=== PATIENT | female | born 1995 | race Caucasian/White ===

== ENCOUNTER 2017-07-07 16:55 | Emergency (ER) | payer BC, OTHER ==
[2017-07-07 17:31] VITALS: BP 141/81
--- NOTE | 2017-07-07 18:00 | EDM.PDOC ---
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 Pt reports long standing history of constipation and states she took ducolax orally and Miralax today and developed abdominal pain. Pt also reporting urinary frequency and urgency which began today. Pt denies any nausea/ vomiting, no fever/chills, no vaginal bleeding or vaginal discharge. Onset: Today Duration: Hour(s): (3) Location: Reports: Abdomen Quality: Reports: Dull Severity: Mild Improves with: Reports: None Worsens with: Reports: None Associated Symptoms: Reports: No Other Symptoms Abdomen Pain Score (Numeric/FACES): 6 - Related Data Allergies Allergy/AdvReac Type Severity Reaction Status Date / Time silver sulfadiazine Allergy Cannot Verified 07/07/17 17:28 [From Brad] Remember Home Meds: Home Meds Cephalexin [Keflex] 500 mg PO Q6HR #28 capsule 07/07/17 [Rx] Pnv No.122/Iron/Folic Acid [ Multi Tablet] 1 tab PO DAILY 07/07/17 [ History] Simethicone 125 mg PO TID PRN #30 tab.chew 07/07/17 [Rx] Past Medical History - Past Surgical History HEENT Surgical History: Reports: Tonsillectomy Social & Family History - Tobacco Use Smoking Status *Q: Current Every Day Smoker Years of Tobacco use: 8 Packs/Tins Daily: 0.7 Used Tobacco, but Quit: No Second Hand Smoke Exposure: Yes - Caffeine Use Caffeine Use: Reports: Coffee, Soda - Recreational Drug Use Recreational Drug Use: No Recreational Drug Type: Reports: Marijuana/Hashish ED ROS GENERAL - Review of Systems Review Of Systems: See Below Constitutional: Reports: No Symptoms HEENT: Reports: No Symptoms Respiratory: Reports: No Symptoms Cardiovascular: Reports: No Symptoms Endocrine: Reports: No Symptoms GI/Abdominal: Reports: Abdominal Pain, Constipation : Reports: Frequency, Urgency Musculoskeletal: Reports: No Symptoms Skin: Reports: No Symptoms Neurological: Reports: No Symptoms Psychiatric: Reports: No Symptoms Hematologic/Lymphatic: Reports: No Symptoms Immunologic: Reports: No Symptoms ED EXAM - Physical Exam Exam: See Below Exam Limited By: No Limitations General Appearance: Alert, WD/WN, No Apparent Distress Head: Atraumatic, Normocephalic Neck: Normal Inspection, Supple, Non-Tender, Full Range of Motion Respiratory/Chest: No Respiratory Distress, Lungs Clear, Normal Breath Sounds, No Accessory Muscle Use, Chest Non-Tender Cardiovascular: Normal Peripheral Pulses, Regular Rate, Rhythm, No Edema, No Gallop, No JVD, No Murmur, No Rub GI/Abdominal Exam: Normal Bowel Sounds, Soft, Non-Tender, No Organomegaly, No Distention, No Abnormal Bruit, No Mass, Pelvis Stable Heart Tones: Present Heart Tones per Min: 160 Movement: Active Back Exam: Normal Inspection, Full Range of Motion, NT Extremities: Normal Inspection, Normal Range of Motion, Non-Tender, Normal Capillary Refill, No Pedal Edema Neurological: Alert, Oriented, CN II-XII Intact, Normal Cognition, Normal Gait, Normal Reflexes, No Motor/Sensory Deficits Psychiatric: Normal Affect, Normal Mood Skin Exam: Warm, Dry, Intact, Normal Color, No Rash Lymphatic: No Adenopathy Course - Vital Signs Last Recorded V/S: Last Vital Signs Temp 36.3 C 07/07/17 17:29 Pulse 75 07/07/17 17:29 Resp 20 07/07/17 17:29 BP 141/81 H 07/07/17 17:29 Pulse Ox 99 07/07/17 17:29 - Orders/Labs/Meds Orders: Active Orders 24 hr Category Date Time Status Cephalexin [Keflex] Med 07/07/17 18:15 Active 250 mg PO Q6HR Medication Orders Cephalexin (Keflex) 250 mg PO Q6HR ZULMA Stop: 07/09/17 23:01 Labs: Laboratory Tests 07/07/17 Range/Units 17:35 Specimen Type Urinvoid Urine Color Yellow (YELLOW) Urine Appearance Slightly cloudy H (CLEAR) Urine pH 7.0 (5.0-9.0) Ur Specific [place] 1.025 (1.005-1.030) Urine Protein Negative (NEGATIVE) mg/dL Urine Glucose (UA) Negative (NEGATIVE) mg/dL Urine Ketones Negative (NEGATIVE) mg/dL Urine Occult Blood Moderate H (NEGATIVE) Urine Nitrite Negative (NEGATIVE) Urine Bilirubin Negative (NEGATIVE) Urine Urobilinogen 0.2 (0.2-1.0) E.U./dL Ur Leukocyte Esterase Negative (NEGATIVE) Urine RBC >100 H /HPF Urine WBC 0-5 /HPF Ur Epithelial Cells Moderate H /LPF Urine Bacteria Few (NONE TO FEW) /HPF Meds: Medications Generic Name Dose Route Start Last Admin Trade Name Freq PRN Reason Stop Dose Admin Cephalexin 250 mg 07/07/17 18:15 Keflex PO 07/09/17 23:01 Q6HR ZULMA Discontinued Medications Generic Name Dose Route Start Last Admin Trade Name Freq PRN Reason Stop Dose Admin Simethicone 160 mg 07/07/17 18:11 Simethicone PO 07/07/17 18:12 ONETIME ONE Departure - Departure Time of Disposition: 18:13 Disposition: Home, Self-Care 01 Condition: Good Clinical Impression: Constipation Qualifiers: Constipation type: slow transit constipation Qualified Code(s): K59.01 - Slow transit constipation Urinary tract infection Qualifiers: Urinary tract infection type: acute cystitis Hematuria presence: without hematuria Qualified Code(s): N30.00 - Acute cystitis without hematuria - Discharge Information Prescriptions: Cephalexin [Keflex] 500 mg PO Q6HR #28 capsule Simethicone 125 mg PO TID PRN #30 tab.chew PRN Reason: Pain Instructions: Urinary Tract Infection, Adult, [id number], Constipation, Adult , [id number] Referrals: PCP,Not In Area [Primary Care Provider] - Forms: ED Department Discharge Additional Instructions: 1. discharge home 2. follow up with Christine Mckeon this week for OB ultrasound and further evaluation and treatment 3. keflex 500mg PO Q6 x 7 days 4. ducolax suppositories 5. simethicone 125 mg PO TID PRN - My Orders Last 24 Hours: My Active Orders 07/07/17 18:15 Cephalexin [Keflex] 250 mg PO Q6HR - Assessment/Plan Last 24 Hours: My Active Orders 07/07/17 18:15 Cephalexin [Keflex] 250 mg PO Q6HR Assessment:: 1. constipation 2. possible UTI Plan: 1. discharge home 2. follow up with Christine Mckeon this week for OB ultrasound and further evaluation and treatment 3. keflex 500mg PO Q6 x 7 days 4. ducolax suppositories 5. simethicone 125 mg PO TID PRN
[2017-07-07] MEDS ORDERED: Simethicone 80 MG Tab.Chew PO ONE (18:11)
[2017-07-07] MEDS ORDERED: Cephalexin 250 MG Cap PO SCH (18:15)
== END 2017-07-07 18:35 | disposition home or self-care (01) ==
LOC: KA.ED 16:55
DX: O99.612 Diseases of the digestive system complicating pregnancy, second trimester (principal); K59.00 Constipation, unspecified; Z3A.16 16 weeks gestation of pregnancy; O99.332 Smoking (tobacco) complicating pregnancy, second trimester; F17.210 Nicotine dependence, cigarettes, uncomplicated; Z79.899 Other long term (current) drug therapy; Z88.8 Allergy status to other drugs, medicaments and biological substances
CPT/HCPCS: 81001; 99284; A9270-GY

== ENCOUNTER 2017-08-03 10:41 | Emergency (ER) | payer BC ==
[2017-08-03] MEDS ORDERED: Sodium Chloride 0.9% 1,000 ML IV ONE (11:14)
[2017-08-03] MEDS ORDERED: Ondansetron 4 MG/2 ML SDV IVPUSH ONE (11:14)
[2017-08-03 11:39] LABS: CHLORIDE,CL 105 mmol/L (98-115); SODIUM,NA 139 mmol/L (136-145)
--- NOTE | 2017-08-03 11:48 | EDM.PDOC ---
ED HPI GENERAL MEDICAL PROBLEM - General Chief Complaint: Abdominal Pain Stated Complaint: nausea and vomiting Time Seen by Provider: 08/03/17 11:00 Source of Information: Reports: Patient History Limitations: Reports: No Limitations - History of Present Illness INITIAL COMMENTS - FREE TEXT/NARRATIVE: 22-year-old female presents in the emergency room with complaints of nausea and vomiting. Patient states that she woke up this morning experiencing nausea and vomiting. She is no some mild lower abdominal pain and right lower back pain. She'll be 20 weeks this coming Sunday. She has had an uncomplicated . This is her first . She's had a recent urinary tract infection but has completed the antibiotics for this. She denies dysuria or hematuria. She denies fever or chills she has not had any recent illnesses. She does see Dr. Gonzalez PRODUCT DEVELOPMENT CONSULTANT in [place]. She has her follow-up in approximately 7-10 days. She denies shortness of breath or chest pain. She denies any upper respiratory complaints. She denies any headache. She is tried one extra strength 500 mg Tylenol but had thrown this up. She feels tired. She's had some diarrhea over the last couple of days prior. This is now resolved. She is denying any recent sexual intercourse in the last week. She is not had any discharge or bleeding. Onset: Today Onset Date: 08/03/17 Onset Time: 08:30 Duration: Hour(s):, Constant Location: Reports: Generalized Quality: Reports: Ache Severity: Moderate Improves with: Reports: None Worsens with: Reports: None Associated Symptoms: Reports: Nausea/Vomiting, Other (backache). 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 CONSULTANT History: Reports: - Past Surgical History HEENT Surgical History: Reports: Tonsillectomy Social & Family History - Tobacco Use Smoking Status *Q: Current Every Day Smoker Years of Tobacco use: 8 Packs/Tins Daily: 0.7 Used Tobacco, but Quit: No Second Hand Smoke Exposure: Yes - Caffeine Use Caffeine Use: Reports: Coffee, Soda - Recreational Drug Use Recreational Drug Use: No Recreational Drug Type: Reports: Marijuana/Hashish ED ROS GENERAL - Review of Systems Review Of Systems: See Below Constitutional: Denies: Fever, Chills HEENT: Denies: Vertigo Respiratory: Denies: Shortness of Breath Cardiovascular: Denies: Chest Pain Endocrine: Reports: No Symptoms GI/Abdominal: Reports: Nausea, Vomiting. Denies: Abdominal Pain : Denies: Pain Musculoskeletal: Reports: Back Pain Skin: Reports: No Symptoms. Denies: Rash, Erythema Neurological: Reports: No Symptoms Psychiatric: Reports: No Symptoms Hematologic/Lymphatic: Reports: No Symptoms Immunologic: Reports: No Symptoms ED EXAM, GENERAL - Physical Exam Exam: See Below Exam Limited By: No Limitations General Appearance: Alert, WD/WN, Mild Distress Nose: Normal Inspection, Normal Mucosa Throat/Mouth: Normal Inspection, Normal Voice Head: Atraumatic, Normocephalic Neck: Normal Inspection, Supple, Non-Tender Respiratory/Chest: No Respiratory Distress, Lungs Clear Cardiovascular: Normal Peripheral Pulses, Regular Rate, Rhythm, No Murmur GI/Abdominal: Normal Bowel Sounds, Soft, No Organomegaly, No Distention, Tender (RLQ). No: Guarding, Rigid, Rebound Back Exam: Normal Inspection, Full Range of Motion, CVA Tenderness (R) (mild) Extremities: Normal Inspection, Normal Range of Motion, No Pedal Edema Neurological: Alert, Oriented, No Motor/Sensory Deficits Psychiatric: Normal Affect, Normal Mood Skin Exam: Warm, Dry, Intact, Normal Color, No Rash Lymphatic: No Adenopathy Course - Vital Signs Last Recorded V/S: Last Vital Signs Temp 98.0 F 08/03/17 11:00 Pulse 66 08/03/17 12:06 Resp 18 08/03/17 12:06 BP 122/55 L 08/03/17 12:06 Pulse Ox 99 08/03/17 12:06 - Orders/Labs/Meds Labs: Laboratory Tests 08/03/17 08/03/17 08/03/17 Range/Units 11:02 11:02 11:02 WBC 12.4 H (5.0-10.0) 10^3/uL RBC 4.33 (3.80-5.50) 10^6/uL Hgb 13.4 D (12.0-16.0) g/dL Hct 39.3 (37.0-47.0) % MCV 90.8 (82.0-92.0) fL MCH 30.8 (27.0-31.0) pg MCHC 34.0 (32.0-36.0) g/dL RDW 11.9 (11.5-14.5) % Plt Count 232 (150-300) 10^3/uL MPV 9.3 (7.4-10.4) fL Neut % (Auto) 86.8 H (50.0-70.0) % Lymph % (Auto) 8.9 L (20.0-40.0) % [place] % (Auto) 3.8 (2.0-8.0) % Eos % (Auto) 0.3 L (1.0-3.0) % Baso % (Auto) 0.2 (0.0-1.0) % Neut # (Auto) 10.8 H (2.5-7.0) 10^3/uL Lymph # (Auto) 1.1 (1.0-4.0) 10^3/uL [place] # (Auto) 0.5 (0.1-0.8) 10^3/uL Eos # (Auto) 0.0 L (0.1-0.3) 10^3/uL Baso # (Auto) 0.0 (0.0-0.1) 10^3/uL Sodium 139 (136-145) mmol/L Potassium 3.5 (3.3-5.3) mmol/L Chloride 105 (98-115) mmol/L Carbon Dioxide 23.1 (21.0-32.0) mmol/L BUN 12 (6-25) mg/dL Creatinine 0.60 (0.51-1.17) mg/dL Est Cr Clr Drug Dosing 140.60 mL/min Estimated GFR (MDRD) > 60 mL/min Glucose 101 (70-110) mg/dL Calcium 8.5 L (8.7-10.3) mg/dL HCG, Quant 7991 mIU/mL Specimen Type Urine Color (YELLOW) Urine Appearance (CLEAR) Urine pH (5.0-9.0) Ur Specific [place] (1.005-1.030) Urine Protein (NEGATIVE) mg/dL Urine Glucose (UA) (NEGATIVE) mg/dL Urine Ketones (NEGATIVE) mg/dL Urine Occult Blood (NEGATIVE) Urine Nitrite (NEGATIVE) Urine Bilirubin (NEGATIVE) Urine Urobilinogen (0.2-1.0) E.U./dL Ur Leukocyte Esterase (NEGATIVE) Urine RBC /HPF Urine WBC /HPF Ur Epithelial Cells /LPF Amorphous Sediment (0/HPF) /HPF Urine Bacteria (NONE TO FEW) /HPF 08/03/17 Range/Units 11:25 WBC (5.0-10.0) 10^3/uL RBC (3.80-5.50) 10^6/uL Hgb (12.0-16.0) g/dL Hct (37.0-47.0) % MCV (82.0-92.0) fL MCH (27.0-31.0) pg MCHC (32.0-36.0) g/dL RDW (11.5-14.5) % Plt Count (150-300) 10^3/uL MPV (7.4-10.4) fL Neut % (Auto) (50.0-70.0) % Lymph % (Auto) (20.0-40.0) % [place] % (Auto) (2.0-8.0) % Eos % (Auto) (1.0-3.0) % Baso % (Auto) (0.0-1.0) % Neut # (Auto) (2.5-7.0) 10^3/uL Lymph # (Auto) (1.0-4.0) 10^3/uL [place] # (Auto) (0.1-0.8) 10^3/uL Eos # (Auto) (0.1-0.3) 10^3/uL Baso # (Auto) (0.0-0.1) 10^3/uL Sodium (136-145) mmol/L Potassium (3.3-5.3) mmol/L Chloride (98-115) mmol/L Carbon Dioxide (21.0-32.0) mmol/L BUN (6-25) mg/dL Creatinine (0.51-1.17) mg/dL Est Cr Clr Drug Dosing mL/min Estimated GFR (MDRD) mL/min Glucose (70-110) mg/dL Calcium (8.7-10.3) mg/dL HCG, Quant mIU/mL Specimen Type Urincc Urine Color Yellow (YELLOW) Urine Appearance Cloudy H (CLEAR) Urine pH 7.5 (5.0-9.0) Ur Specific [place] 1.020 (1.005-1.030) Urine Protein Negative (NEGATIVE) mg/dL Urine Glucose (UA) Negative (NEGATIVE) mg/dL Urine Ketones Negative (NEGATIVE) mg/dL Urine Occult Blood Moderate H (NEGATIVE) Urine Nitrite Negative (NEGATIVE) Urine Bilirubin Negative (NEGATIVE) Urine Urobilinogen 0.2 (0.2-1.0) E.U./dL Ur Leukocyte Esterase Negative (NEGATIVE) Urine RBC 10-20 H /HPF Urine WBC 0-5 /HPF Ur Epithelial Cells Moderate H /LPF Amorphous Sediment Many H (0/HPF) /HPF Urine Bacteria Few (NONE TO FEW) /HPF Meds: Medications Discontinued Medications Generic Name Dose Route Start Last Admin Trade Name Niya PRN Reason Stop Dose Admin Acetaminophen 650 mg 08/03/17 11:50 08/03/17 11:54 Tylenol PO 08/03/17 11:51 650 mg NOW ONE Administration Sodium Chloride 1,000 mls @ 1,000 mls/hr 08/03/17 11:14 08/03/17 11:18 Normal Saline IV 08/03/17 12:13 1,000 mls/hr .BOLUS ONE Administration Ondansetron HCl 4 mg 08/03/17 11:14 08/03/17 11:18 Zofran IVPUSH 08/03/17 11:15 4 mg ONETIME ONE Administration - Re-Assessments/Exams Free Text/Narrative Re-Assessment/Exam: 08/03/17 11:59 Zofran 4 mg IV was given. Patient was given 1 L of normal saline fluids. Patient reports nausea and vomiting have resolved. Departure - Departure Time of Disposition: 13:10 Disposition: Home, Self-Care 01 Condition: Good Clinical Impression: Nausea/vomiting in , Right flank pain Abdominal pain during Qualifiers: Trimester: first trimester Qualified Code(s): O26.891 - Other specified related conditions, first trimester; R10.9 - Unspecified abdominal pain Hematuria Qualifiers: Hematuria type: asymptomatic microscopic Qualified Code(s): R31.21 - Asymptomatic microscopic hematuria - Discharge Information Instructions: Renal Colic, [id number], Appendicitis, [id number], Hematuria , Adult Referrals: PCP,None [Primary Care Provider] - Forms: ED Department Discharge Additional Instructions: 1. Continue with oral hydration 2. Zofran 4 mg ODT as needed for nausea 3. We will follow-up with results from your ultrasound. 4. Continue with your scheduled PRODUCT DEVELOPMENT CONSULTANT appointment in [place]. 5. Return to the ER if nausea, vomiting, abdominal complaints persist. - Assessment/Plan Assessment:: 1. Right lower quadrant abdominal pain and 2. Nausea and vomiting in resolved 3. First trimester 4. Right flank pain 5. Hematuria Plan: 1. Continue with oral hydration 2. Zofran 4 mg ODT as needed for nausea 3. We will follow-up with results from your ultrasound. 4. Continue with your scheduled PRODUCT DEVELOPMENT CONSULTANT appointment in [place]. 5. Return to the ER if nausea, vomiting, abdominal complaints persist. 6. Follow-up with primary care next week, Marcia Carroll PAC
[2017-08-03] MEDS ORDERED: Acetaminophen 325 MG Tab PO ONE (11:50)
[2017-08-03 13:12] VITALS: BP 112/45
== END 2017-08-03 13:13 | disposition home or self-care (01) ==
LOC: KA.ED 10:41
DX: O26.892 Other specified pregnancy related conditions, second trimester (principal); R10.9 Unspecified abdominal pain; R31.21 Asymptomatic microscopic hematuria; O99.332 Smoking (tobacco) complicating pregnancy, second trimester; F17.210 Nicotine dependence, cigarettes, uncomplicated; Z88.8 Allergy status to other drugs, medicaments and biological substances; Z3A.20 20 weeks gestation of pregnancy
CPT/HCPCS: 80048; 81001; 84702; 85025; 96361; 96374; 99284; A9270-GY; J2405; J7030

== ENCOUNTER 2017-09-01 09:59 | Emergency (ER) | payer BC ==
[2017-09-01 10:26] VITALS: BP 119/61
--- NOTE | 2017-09-01 11:01 | EDM.PDOC ---
ED HPI GENERAL MEDICAL PROBLEM - General Chief Complaint: General Stated Complaint: URINARY FREQUENCY, RIGHT SIDE BACK PAIN Time Seen by Provider: 09/01/17 10:20 Source of Information: Reports: Patient History Limitations: Reports: No Limitations - History of Present Illness INITIAL COMMENTS - FREE TEXT/NARRATIVE: 22 YO WF [id number] 24 weeks with urinary frequency and urgency x 1 day. Pt reports episode of right sided back pain with voiding but resolved. Pt denies any fever/chill, no nausea/vomiting and states she feels well with normal activity per mom. Mom concerned due to UTI during pregancy and the possibility of kidney stones. Pt currently without any discomfort and thinks that her urgency and frequency may have been due to the position of the fetus. Onset: Today Duration: Day(s): (1) Location: Reports: Back Quality: Reports: Ache Severity: Mild Improves with: Reports: None Worsens with: Reports: None Associated Symptoms: Reports: No Other Symptoms. 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: - Past Surgical History HEENT Surgical History: Reports: Tonsillectomy Social & Family History - Tobacco Use Smoking Status *Q: Current Every Day Smoker Years of Tobacco use: 8 Packs/Tins Daily: 1 Used Tobacco, but Quit: No - Caffeine Use Caffeine Use: Reports: Coffee, Soda - Recreational Drug Use Recreational Drug Use: No ED ROS GENERAL - Review of Systems Review Of Systems: See Below Constitutional: Reports: No Symptoms HEENT: Reports: No Symptoms Respiratory: Reports: No Symptoms Cardiovascular: Reports: No Symptoms Endocrine: Reports: No Symptoms GI/Abdominal: Reports: No Symptoms : Reports: Frequency, Urgency Musculoskeletal: Reports: No Symptoms Skin: Reports: No Symptoms Neurological: Reports: No Symptoms Psychiatric: Reports: No Symptoms Hematologic/Lymphatic: Reports: No Symptoms Immunologic: Reports: No Symptoms ED EXAM, GENERAL - Physical Exam Exam: See Below Exam Limited By: No Limitations General Appearance: Alert, WD/WN, No Apparent Distress Head: Atraumatic, Normocephalic Neck: Normal Inspection, Supple, Non-Tender, Full Range of Motion Respiratory/Chest: No Respiratory Distress, Lungs Clear, Normal Breath Sounds, No Accessory Muscle Use, Chest Non-Tender Cardiovascular: Normal Peripheral Pulses, Regular Rate, Rhythm, No Edema, No Gallop, No JVD, No Murmur, No Rub GI/Abdominal: Normal Bowel Sounds, Soft, Non-Tender, No Organomegaly, No Distention, No Abnormal Bruit, No Mass Back Exam: Normal Inspection, Full Range of Motion, NT Extremities: Normal Inspection, Normal Range of Motion, Non-Tender, Normal Capillary Refill, No Pedal Edema Neurological: Alert, Oriented, CN II-XII Intact, Normal Cognition, Normal Gait, Normal Reflexes, No Motor/Sensory Deficits Psychiatric: Normal Affect, Normal Mood Skin Exam: Warm, Dry, Intact, Normal Color, No Rash Lymphatic: No Adenopathy Course - Vital Signs Last Recorded V/S: Last Vital Signs Temp 36.9 C 09/01/17 10:20 Pulse 68 09/01/17 10:20 Resp 18 09/01/17 10:20 BP 119/61 09/01/17 10:20 Pulse Ox 100 09/01/17 10:20 - Orders/Labs/Meds Labs: Laboratory Tests 09/01/17 Range/Units 10:13 Specimen Type Urinvoid Urine Color Yellow (YELLOW) Urine Appearance Clear (CLEAR) Urine pH 6.5 (5.0-9.0) Ur Specific [place] 1.015 (1.005-1.030) Urine Protein Negative (NEGATIVE) mg/dL Urine Glucose (UA) Negative (NEGATIVE) mg/dL Urine Ketones Negative (NEGATIVE) mg/dL Urine Occult Blood Moderate H (NEGATIVE) Urine Nitrite Negative (NEGATIVE) Urine Bilirubin Negative (NEGATIVE) Urine Urobilinogen 0.2 (0.2-1.0) E.U./dL Ur Leukocyte Esterase Negative (NEGATIVE) Urine RBC 30-40 H /HPF Urine WBC 0-5 /HPF Ur Epithelial Cells Moderate H /LPF Urine Bacteria Few (NONE TO FEW) /HPF Urine Mucus Few H (NEGATIVE) /LPF Departure - Departure Time of Disposition: 11:05 Disposition: Home, Self-Care 01 Condition: Good Clinical Impression: Urinary tract infection Qualifiers: Urinary tract infection type: acute cystitis Hematuria presence: without hematuria Qualified Code(s): N30.00 - Acute cystitis without hematuria - Discharge Information Prescriptions: Cephalexin [Keflex] 500 mg PO Q6H #40 capsule Instructions: Urinary Tract Infection, Adult, [id number] Referrals: Marcia Carroll PA-C [Primary Care Provider] - - Assessment/Plan Assessment:: 1. urinary tract infection 2. second trimester Plan: 1. keflex 500mg PO Q6 x 10 days 2. follow up with clinic for urine culture results 3. 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 return to ER for worsening symptoms
== END 2017-09-01 11:15 | disposition home or self-care (01) ==
LOC: KA.ED 09:59
DX: O23.42 Unspecified infection of urinary tract in pregnancy, second trimester (principal); O99.332 Smoking (tobacco) complicating pregnancy, second trimester; F17.210 Nicotine dependence, cigarettes, uncomplicated; Z3A.24 24 weeks gestation of pregnancy; Z88.8 Allergy status to other drugs, medicaments and biological substances
CPT/HCPCS: 81001; 87086; 99284

== ENCOUNTER 2018-09-24 08:38 | Emergency (ER) | payer BC, MEDICAID ==
[2018-09-24] MEDS: Sodium Chloride 0.9% 1,000 ML IV ONE (09:15)
[2018-09-24] MEDS ORDERED: Sodium Chloride 0.9% 10 ML SDV IV ONE (09:15)
[2018-09-24] MEDS: Ketorolac 30 MG/ML SDV IVPUSH ONE (09:24)
[2018-09-24] MEDS: Ondansetron 4 MG/2 ML SDV IVPUSH ONE (09:25)
[2018-09-24 09:37] LABS: ANION GAP 17.8 mmol/L (5-15); CHLORIDE,CL 110 mmol/L (98-115); SODIUM,NA 149 mmol/L (136-145)
--- NOTE | 2018-09-24 09:37 | EDM.PDOC ---
ED HPI GENERAL MEDICAL PROBLEM - General Chief Complaint: Genitourinary Problem Stated Complaint: KIDNEY PAIN Time Seen by Provider: 09/24/18 09:17 Source of Information: Reports: Patient History Limitations: Reports: No Limitations - History of Present Illness INITIAL COMMENTS - FREE TEXT/NARRATIVE: Patient presents with RUQ pain that started 2 hours ago when she awoke. Pain is quite bad and she says she has had similar pain but less severe 3 times in the past that have been a kidney infection. She denies any kidney stones. She has vomited twice. She hasn't seen any hematuria recently but says she has had that in the past with kidney infections. She just finished her period a week ago. Right Flank Pain Score (Numeric/FACES): 5 - Related Data Allergies Allergy/AdvReac Type Severity Reaction Status Date / Time silver sulfadiazine Allergy Cannot Verified 09/24/18 10:52 [From Brad] Remember Past Medical History Genitourinary History: Reports: UTI, Recurrent [employer] History: Reports: - Past Surgical History HEENT Surgical History: Reports: Tonsillectomy Social & Family History - Family History Family Medical History: Noncontributory - Caffeine Use Caffeine Use: Reports: Coffee, Soda ED ROS GENERAL - Review of Systems Review Of Systems: See Below Constitutional: Denies: Fever, Weakness HEENT: Reports: No Symptoms Respiratory: Denies: Shortness of Breath, Cough Cardiovascular: Denies: Chest Pain, Lightheadedness, Syncope GI/Abdominal: Reports: Abdominal Pain, Vomiting : Reports: Flank Pain (right). Denies: Dysuria Musculoskeletal: Reports: No Symptoms Skin: Denies: Cyanosis, Jaundice, Mottled, Pallor, Diaphoresis Neurological: Denies: Confusion, Dizziness, Headache, Seizure, Syncope, Trouble Speaking, Difficulty Walking Psychiatric: Denies: Agitation, Anxiety, Confusion ED EXAM, GI/ABD - Physical Exam Exam: See Below Exam Limited By: No Limitations General Appearance: Alert, WD/WN, Moderate Distress Eyes: Bilateral: Normal Appearance, EOMI Ears: Normal External Exam, Hearing Grossly Normal Nose: Normal Inspection, No Blood Throat/Mouth: Normal Inspection, Normal Lips, Normal Voice, No Airway Compromise Head: Atraumatic, Normocephalic Neck: Normal Inspection, Supple, Non-Tender, Full Range of Motion Respiratory/Chest: No Respiratory Distress, Lungs Clear, Normal Breath Sounds Cardiovascular: Normal Peripheral Pulses, Regular Rate, Rhythm, No Murmur GI/Abdominal Exam: Normal Bowel Sounds, Soft, Non-Tender (pain not reproducible) , No Organomegaly, No Distention, No Abnormal Bruit Back Exam: Normal Inspection, Full Range of Motion. No: CVA Tenderness (L), CVA Tenderness (R) (right flank pain but not to palpation) Extremities: Normal Inspection, Normal Range of Motion, Non-Tender, No Pedal Edema Neurological: Alert, Oriented, Normal Cognition, No Motor/Sensory Deficits Psychiatric: Normal Affect, Normal Mood Skin Exam: Warm, Dry, Intact, Normal Color, No Rash Course - Orders/Labs/Meds Orders: Active Orders 24 hr Category Date Time Status Peripheral IV Care [RC] . DIRECTED Care 09/24/18 09:08 Active Sodium Chloride 0.9% [Normal Saline] 50 ml Med 09/24/18 09:45 Active IV ASDIRECTED Medication Orders Sodium Chloride (Normal Saline) 50 mls @ 200 mls/min IV ASDIRECTED ZULMA Last Admin: 09/24/18 10:05 Dose: 200 mls/min Labs: Laboratory Tests 09/24/18 09/24/18 09/24/18 Range/Units 08:40 08:40 09:00 WBC 7.31 (5.00-10.00) 10^3/uL RBC 4.82 (3.80-5.50) 10^6/uL Hgb 14.6 (12.0-16.0) g/dL Hct 41.5 (37.0-47.0) % MCV 86.1 D (82.0-92.0) fL MCH 30.3 (27.0-31.0) pg MCHC 35.2 (32.0-36.0) g/dL RDW 12.3 (11.5-14.5) % Plt Count 321 (150-400) 10^3/uL MPV 10.8 H (7.4-10.4) fL Immature Gran % (Auto) 0.0 (0.0-5.0) % Neut % (Auto) 59.5 (50.0-70.0) % Lymph % (Auto) 30.8 (20.0-40.0) % Star[place] % (Auto) 7.8 (2.0-8.0) % Eos % (Auto) 1.5 (1.0-3.0) % Baso % (Auto) 0.4 (0.0-1.0) % Immature Gran # (Auto) 0.00 (0.00-0.50) 10^3/uL Neut # (Auto) 4.35 (2.50-7.00) 10^3/uL Lymph # (Auto) 2.25 (1.00-4.00) 10^3/uL Starke # (Auto) 0.57 (0.10-0.80) 10^3/uL Eos # (Auto) 0.11 (0.10-0.30) 10^3/uL Baso # (Auto) 0.03 (0.00-0.10) 10^3/uL Sodium (136-145) mmol/L Potassium (3.3-5.3) mmol/L Chloride (98-115) mmol/L Carbon Dioxide (21.0-32.0) mmol/L Anion Gap (5-15) mmol/L BUN (6-25) mg/dL Creatinine (0.51-1.17) mg/dL Est Cr Clr Drug Dosing Estimated GFR (MDRD) mL/min Glucose (75 - 99) mg/dL Calcium (8.7-10.3) mg/dL Specimen Type Urincc Urine Color Yellow (YELLOW) Urine Appearance Cloudy H (CLEAR) Urine pH 5.5 (5.0-9.0) Ur Specific [place] > 1.030 H (1.005-1.030) Urine Protein 100 H (NEGATIVE) mg/dL Urine Glucose (UA) Negative (NEGATIVE) mg/dL Urine Ketones Trace H (NEGATIVE) mg/dL Urine Occult Blood Large H (NEGATIVE) Urine Nitrite Negative (NEGATIVE) Urine Bilirubin Small H (NEGATIVE) Urine Urobilinogen 1.0 (0.2-1.0) E.U./dL Ur Leukocyte Esterase Negative (NEGATIVE) Urine HCG, Qual Negative (NEGATIVE) 09/24/18 Range/Units 09:00 WBC (5.00-10.00) 10^3/uL RBC (3.80-5.50) 10^6/uL Hgb (12.0-16.0) g/dL Hct (37.0-47.0) % MCV (82.0-92.0) fL MCH (27.0-31.0) pg MCHC (32.0-36.0) g/dL RDW (11.5-14.5) % Plt Count (150-400) 10^3/uL MPV (7.4-10.4) fL Immature Gran % (Auto) (0.0-5.0) % Neut % (Auto) (50.0-70.0) % Lymph % (Auto) (20.0-40.0) % Starke % (Auto) (2.0-8.0) % Eos % (Auto) (1.0-3.0) % Baso % (Auto) (0.0-1.0) % Immature Gran # (Auto) (0.00-0.50) 10^3/uL Neut # (Auto) (2.50-7.00) 10^3/uL Lymph # (Auto) (1.00-4.00) 10^3/uL [place]ke # (Auto) (0.10-0.80) 10^3/uL Eos # (Auto) (0.10-0.30) 10^3/uL Baso # (Auto) (0.00-0.10) 10^3/uL Sodium 149 H D (136-145) mmol/L Potassium 3.7 (3.3-5.3) mmol/L Chloride 110 (98-115) mmol/L Carbon Dioxide 24.9 (21.0-32.0) mmol/L Anion Gap 17.8 H (5-15) mmol/L BUN 10 (6-25) mg/dL Creatinine 0.72 (0.51-1.17) mg/dL Est Cr Clr Drug Dosing TNP Estimated GFR (MDRD) > 60 mL/min Glucose 99 (75 - 99) mg/dL Calcium 8.9 (8.7-10.3) mg/dL Specimen Type Urine Color (YELLOW) Urine Appearance (CLEAR) Urine pH (5.0-9.0) Ur Specific [place] (1.005-1.030) Urine Protein (NEGATIVE) mg/dL Urine Glucose (UA) (NEGATIVE) mg/dL Urine Ketones (NEGATIVE) mg/dL Urine Occult Blood (NEGATIVE) Urine Nitrite (NEGATIVE) Urine Bilirubin (NEGATIVE) Urine Urobilinogen (0.2-1.0) E.U./dL Ur Leukocyte Esterase (NEGATIVE) Urine HCG, Qual (NEGATIVE) Meds: Medications Generic Name Dose Route Start Last Admin Trade Name Niya PRN Reason Stop Dose Admin Sodium Chloride 50 mls @ 200 mls/min 09/24/18 09:45 09/24/18 10:05 Normal Saline IV 200 mls/min ASDIRECTED ZULMA Administration Discontinued Medications Generic Name Dose Route Start Last Admin Trade Name Niya PRN Reason Stop Dose Admin Hydromorphone HCl 1 mg 09/24/18 09:24 09/24/18 09:40 Dilaudid IVPUSH 09/24/18 09:25 1 mg ONETIME ONE Administration Sodium Chloride 1,000 mls @ 2,000 mls/hr 09/24/18 09:15 Normal Saline IV 09/24/18 09:44 .BOLUS ONE Iopamidol 100 ml 09/24/18 09:44 09/24/18 10:05 Isovue-300 (61%) IVPUSH 09/24/18 09:45 75 ml ONETIME ONE Administration Ketorolac Tromethamine 30 mg 09/24/18 09:08 09/24/18 09:24 Toradol IVPUSH 09/24/18 09:09 30 mg ONETIME ONE Administration Ondansetron HCl 4 mg 09/24/18 09:09 09/24/18 09:25 Zofran IVPUSH 09/24/18 09:10 4 mg ONETIME ONE Administration - Re-Assessments/Exams Free Text/Narrative Re-Assessment/Exam: 09/24/18 11:46 UA shows large occult blood but no sign of UTI. CT shows 4x5 mm stone in distal right ureter. Patient is now pain-free and I suspect she has passed the stone; since she hasn't urinated yet since the CT will strain urine until she passes stone either in ER or at home. Discussed findings and treatment plan with patient and she is discharged to home in stable condition. Departure - Departure Time of Disposition: 11:42 Disposition: Home, Self-Care 01 Condition: Good Clinical Impression: Right distal ureteral calculus, Bilateral renal stones - Discharge Information Instructions: Kidney Stones, [id number] Referrals: Marcia Carroll PA-C [Primary Care Provider] - Forms: ED Department Discharge Additional Instructions: 1. Drink 8 cups of water daily. 2. Try to minimize soda intake. 3. Strain your urine until you catch the stone and take it to your PCP clinic lab for analysis. They may be able to provide a treatment plan to minimize risk of additional stone formation. However you do have a few more in both kidneys currently that may pass sooner or later. 4. Follow up with your PCP in a few days to recheck and discuss options. - My Orders Last 24 Hours: My Active Orders 09/24/18 09:08 Peripheral IV Care [RC] . DIRECTED 09/24/18 09:45 Sodium Chloride 0.9% [Normal Saline] 50 ml IV ASDIRECTED - Assessment/Plan Last 24 Hours: My Active Orders 09/24/18 09:08 Peripheral IV Care [RC] . DIRECTED 09/24/18 09:45 Sodium Chloride 0.9% [Normal Saline] 50 ml IV ASDIRECTED
[2018-09-24] MEDS: HYDROmorphone 1 MG/ML Syringe IVPUSH ONE (09:40)
[2018-09-24] MEDS: Sodium Chloride 0.9% 50 ML IV SCH (10:05)
[2018-09-24] MEDS: Iopamidol 612 MG/ML 100 ML Bottle IVPUSH ONE (10:05)
--- NOTE | 2018-09-24 10:59 | CT ---
[id number] CT/CT Abdomen Pelvis W IV EXAM: CT Abdomen Pelvis W IV CLINICAL DATA: LOWER ABDOMINAL PAIN RADIATING TO RIGHT UPPER COMPARISON STUDY: None. FINDINGS: 5 x 4 mm obstructing distal right ureteral calculus near the UVJ with moderate upstream hydroureteronephrosis. Numerous additional nonobstructing bilateral renal calculi, largest of which measures between 4 and 5 mm and is located in the right renal pelvis. Small focal area of fatty infiltration in the left hepatic lobe near the falciform ligament. Remainder structures in the abdomen/pelvis are unremarkable. IMPRESSION: 5 x 4 mm obstructing distal right ureteral calculus with moderate upstream hydroureteronephrosis. Blaine Murray MD 09/24/18 1058 Thank you for allowing us to participate in the care of your patient.
[2018-09-24 19:25] VITALS: BP 148/91
== END 2018-09-24 12:08 | disposition home or self-care (01) ==
LOC: KA.ED 08:38
DX: N13.2 Hydronephrosis with renal and ureteral calculous obstruction (principal); Z98.890 Other specified postprocedural states
CPT/HCPCS: 74177; 80048; 81003; 81025; 85025; 96374; 96375; 99284-25; J1170; J1885; J2405; J7030; J7050; Q9967

== ENCOUNTER 2019-06-13 18:56 | Emergency (ER) | payer MEDICAID ==
[2019-06-13 19:17] VITALS: BP 141/80; PULSE 80
--- NOTE | 2019-06-13 19:54 | EDM.PDOC ---
ED HPI GENERAL MEDICAL PROBLEM - General Chief Complaint: General Stated Complaint: SORE THROAT Time Seen by Provider: 06/13/19 19:00 Source of Information: Reports: Patient History Limitations: Reports: No Limitations - History of Present Illness INITIAL COMMENTS - FREE TEXT/NARRATIVE: 3-year-old female presents emergency room with complaints of 1 day history of sore throat. 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 She is not had any fever or chills no cough. No shortness of breath. No ear pain or sinus congestion. 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 ED EXAM, GENERAL - Physical Exam Exam: See Below Exam Limited By: No Limitations General Appearance: Alert, WD/WN, No Apparent Distress Eye Exam: Bilateral Eye: EOMI Ears: Normal External Exam, Normal Canal, Hearing Grossly Normal, Normal TMs Nose: Normal Inspection, Normal Mucosa Throat/Mouth: Normal Inspection, Normal Lips, Normal Teeth, Normal Gums, Normal Oropharynx, Normal Voice, No Airway Compromise Head: Atraumatic, Normocephalic Neck: Normal Inspection, Supple, Non-Tender, Full Range of Motion Back Exam: Normal Inspection Extremities: Normal Inspection Neurological: Alert, Oriented Psychiatric: Normal Affect, Normal Mood Skin Exam: Warm, Dry, Intact, Normal Color, No Rash Lymphatic: No Adenopathy Course - Vital Signs Last Recorded V/S: Last Vital Signs Temp 97.9 F 06/13/19 19:15 Pulse 80 06/13/19 19:15 Resp 18 06/13/19 19:15 BP 141/80 H 06/13/19 19:15 Pulse Ox 96 06/13/19 19:15 - Orders/Labs/Meds Orders: Active Orders 24 hr Category Date Time Status CULTURE STREP A CONFIRMATION [RM] Stat Lab 06/13/19 19:21 Results STREP SCRN A RAPID W CULT CONF [RM] Stat Lab 06/13/19 19:21 Results - Re-Assessments/Exams Free Text/Narrative Re-Assessment/Exam: 06/13/19 19:56 Strep culture was negative Departure - Departure Time of Disposition: 19:56 Disposition: Home, Self-Care 01 Condition: Good Clinical Impression: Acute sore throat - Discharge Information Instructions: Sore Throat Referrals: aMrcia Carroll PA-C [Primary Care Provider] - Forms: ED Department Discharge Sepsis Event Note - Evaluation Sepsis Screening Result: No Definite Risk - Focused Exam Vital Signs: Vital Signs Temp Pulse Resp BP Pulse Ox 06/13/19 19:15 97.9 F 80 18 141/80 H 96 Date Exam was Performed: 06/13/19 Time Exam was Performed: 19:48 - My Orders Last 24 Hours: My Active Orders 06/13/19 19:21 CULTURE STREP A CONFIRMATION [RM] Stat STREP SCRN A RAPID W CULT CONF [RM] Stat - Assessment/Plan Last 24 Hours: My Active Orders 06/13/19 19:21 CULTURE STREP A CONFIRMATION [RM] Stat STREP SCRN A RAPID W CULT CONF [RM] Stat Assessment:: Acute Sore throat Plan: 1. Cough drops, Chloraseptic spray for sore throat 2. Tylenol or ibuprofen for any pain or discomfort 3. Follow-up primary care next week if symptoms are not improving
== END 2019-06-13 19:55 | disposition home or self-care (01) ==
LOC: KA.ED 18:56
DX: J02.9 Acute pharyngitis, unspecified (principal); F17.210 Nicotine dependence, cigarettes, uncomplicated; Z88.8 Allergy status to other drugs, medicaments and biological substances
CPT/HCPCS: 87081; 87430; 99283

== ENCOUNTER 2021-05-20 06:03 | Emergency (ER) | payer BC, MEDICAID ==
[2021-05-20] MEDS ORDERED: Morphine 2 MG/ML SYRINGE IVPUSH ONE (06:12)
[2021-05-20] MEDS ORDERED: Ondansetron 4 MG/2 ML SDV IVPUSH ONE (06:12)
[2021-05-20] MEDS ORDERED: Sodium Chloride 0.9% 10 ML Syringe FLUSH PRN (06:43)
[2021-05-20] MEDS ORDERED: Sodium Chloride 0.9% 1,000 ML IV ONE (06:43)
[2021-05-20] MEDS ORDERED: Ketorolac 30 MG/ML SDV IVPUSH ONE (06:43)
[2021-05-20] MEDS ORDERED: HYDROmorphone 1 MG/ML Syringe IVPUSH ONE (06:43)
[2021-05-20 07:00] LABS: ANION GAP 17.2 mmol/L (5-15); CHLORIDE,CL 102 mmol/L (98-107); SODIUM,NA 139 mmol/L (136-145)
[2021-05-20 07:56] VITALS: BP 109/67; PULSE 49
== END 2021-05-20 08:25 | disposition home or self-care (01) ==
LOC: KA.ED 06:03
DX: N13.2 Hydronephrosis with renal and ureteral calculous obstruction (principal); R31.21 Asymptomatic microscopic hematuria; Z88.8 Allergy status to other drugs, medicaments and biological substances; Z72.0 Tobacco use
CPT/HCPCS: 36415; 74176; 80048; 81001; 85025; 96374; 96375; 99284; 99284-25; J1170; J1885; J2270; J2405; J7030

== ENCOUNTER 2021-07-05 16:22 | Emergency (ER) | payer BC ==
[2021-07-05] MEDS ORDERED: Sodium Chloride 0.9% 10 ML Syringe FLUSH PRN (16:55)
[2021-07-05] MEDS: Sodium Chloride 0.9% 1,000 ML IV ONE (17:00)
[2021-07-05] MEDS: Ketorolac 30 MG/ML SDV IVPUSH ONE (17:06)
[2021-07-05] MEDS: Ondansetron 4 MG/2 ML SDV IVPUSH ONE (17:09)
[2021-07-05] MEDS: HYDROmorphone 1 MG/ML Syringe IVPUSH ONE (17:29)
[2021-07-05 17:32] LABS: ANION GAP 17.5 mmol/L (5-15); CHLORIDE,CL 102 mmol/L (98-107); SODIUM,NA 139 mmol/L (136-145)
[2021-07-05] MEDS: Ondansetron 4 MG Tab.DIS PO ONE (18:30)
[2021-07-05 19:44] VITALS: BP 122/79; PULSE 49
== END 2021-07-05 18:35 | disposition home or self-care (01) ==
LOC: KA.ED 16:22
DX: N20.0 Calculus of kidney (principal); R11.2 Nausea with vomiting, unspecified; Z88.8 Allergy status to other drugs, medicaments and biological substances; Z86.16 Personal history of COVID-19
CPT/HCPCS: 36415; 80048; 85025; 96374; 96375; 99283; 99284-25; A9270-GY; J1170; J1885; J2405; J7030